=== PATIENT | female | born 1930 | race Caucasian/White ===

== ENCOUNTER 2016-07-08 14:01 | Inpatient (IN) | payer MEDICARE, BC ==
[~2016-07-08] VITALS: Ht 157.5 cm; Wt 70.4 kg
[~2016-07-08 14:01] MED LIST: CALCIUM600 MG PO; FOSAMAX70 MG PO; LOMOTIL-DPS1 TAB PO; LOPRESSOR DPS50 MG PO; LOTENSIN HCT 201 TAB PO; MAALOX DPS30 ML PO; NORVASC5 MG PO; PEPCID DPS20 MG PO; SURFAK DPS240 MG PO; THERAPEUTIC MUL1 TAB PO; TYLENOL DPS325 MG PO; ULTRAM DPS50 MG PO; VITAMIN D-32000 UNI1 PO; VOTRIENT200 MG PO; ZOCOR DPS20 MG PO
--- NOTE | 2016-07-11 08:57 | CO ---
ADMIT: 07/08/2016 RM/LOC: [address] [facility] MR#: [id number] ACC#: [id number] [address] [address] MARIYA KENDRICK Greg [address] [place] [address] Consultation SEX: F AGE: 86 : 1930 DATE OF CONSULTATION: 07/08/2016 ATTENDING PHYSICIAN: Sekou Diaz CONSULTING PHYSICIAN: Wisam Knight MD PROBLEM: Gross hematuria. HISTORY OF PRESENT ILLNESS: This 86-year-old female was seen in the office approximately 1 year ago for a right renal mass. At that time, this was consistent with renal cell carcinoma and she was referred to Dr. Sekou Vaz for radiofrequency ablation which was performed without incident. In April of this year, she did have a repeat renal CT demonstrating the mass to be unchanged in size from that noted previously. She had fallen at that time and was noted to have a retroperitoneal hematoma. She was admitted to the hospital today with gross hematuria. She has had mild dysuria without flank pain, fever, or chills. No nausea or vomiting. There has been no sudden weight loss or bony skeletal pain. PAST MEDICAL HISTORY: MEDICATIONS: 1. Benazepril/hydrochlorothiazide 20/12.5 daily. 2. Metoprolol 50 mg daily. 3. Simvastatin 20 mg daily. 4. Macrodantin 100 mg twice a day which was started yesterday. 5. Amlodipine 5 mg daily. 6. Multiple vitamin daily. 7. Vitamin D3 5000 units daily. 8. Calcium 600 mg daily. ALLERGIES: NONE. PAST SURGICAL HISTORY: Operations as previously stated. Also, coronary artery bypass graft, aortic valve replacement, and bilateral total knee replacement. REVIEW OF SYSTEMS: She does have a history of essential hypertension, hyperlipidemia, osteoporosis. FAMILY HISTORY: Negative for urologic problems. SOCIAL HISTORY: She is a and lives by herself with the support of her family. She does not smoke nor drink. PHYSICAL EXAMINATION: VITAL SIGNS: Temperature is 96.4, respirations 16, pulse 68, blood pressure 118/48. HEENT: Unremarkable. NECK: Supple without adenopathy. ADMIT: 07/08/2016 RM/LOC: 531 [facility] MR#: [id number] [address] [id number] MARIYA KENDRICK [address] [place] [address] Consultation SEX: F AGE: 86 : 1930 ABDOMEN: Soft and without tenderness, guarding, or rigidity, especially in the flank and suprapubic region. No guarding or rigidity was noted. EXTREMITIES: Had full range of motion without deformity. NEUROLOGICAL: She is grossly intact. LABORATORY DATA: Sodium is 143, potassium 4.1, chloride 108, CO2 22, BUN 87, glucose 130, and creatinine was 3.8. CBC showed a white count of 13,100 and hematocrit of 18.6. Voided urinalysis does reveal 3+ occult blood, 3+ leukocytes, 1+ ketone, 2+ protein. A urine culture did reveal, from the , E. coli sensitive to all antibiotics other than Cipro and Levaquin. ASSESSMENT: 1. Escherichia coli urinary tract infection. 2. Acute renal insufficiency. 3. Gross hematuria which may be secondary to her renal cell carcinoma but also may be secondary to her urinary tract infection, although I would venture to say this is more consistent with renal bleed given the amount of blood loss. PLAN: 1. I would repeat her renal CT to evaluate the renal mass given the fact that she has a prior history of retroperitoneal bleed as well. 2. I would insert a Reyez catheter and monitor her urine output closely. 3. I would continue her antibiotic therapy as prescribed by Dr. Diaz. Thank you for allowing us to assist you in the care of Ms. Kendrick and we will follow along with you. R Moisés Knight MD/ nia JOB #: [id number] CC: Sekou Diaz, Attending Physician Sekou Diaz, Family Physician Sekou Diaz MD
[2016-07-21] MEDS ORDERED: SOD BICARB TAB650 MG PO (15:37)
[2016-07-21] MEDS ORDERED: NYSTATIN CREAM15 GM TP (15:37)
--- NOTE | 2016-08-05 09:47 | CO ---
ADMIT: 07/08/2016 RM/LOC: [address] [facility] MR#: [id number] ACC#: [id number] [address] [facility] [address] [place] [id number] MARIYA KENDRICK [address] [place] [address] Consultation SEX: F AGE: 86 : 1930 DATE OF CONSULTATION: 07/08/2016 ATTENDING PHYSICIAN: Sekou Diaz CONSULTING PHYSICIAN: Portia Velázquez MD REASONS FOR CONSULTATION: 1. Acute drop in hemoglobin. 2. Symptomatic anemia. 3. Renal cell carcinoma, on chemotherapy. INTERIM HISTORY: Ms. Kendrick is an 86-year-old, pleasant woman, very well known to me. She has a history of renal cell cancer, unresectable, on pazopanib, she wants to me in the clinic, 2 weeks ago and was fine and we held her treatment and gave her some breakthrough to recover from her chronic condition, because she was recently hospitalized and discharged but initially presented with acute drop in hemoglobin, pale-looking shortness of breath, tired, fatigue, deep brain stimulator, bad condition, her hemoglobin was 5.4; therefore, she was admitted to the hospital for further evaluation. She complains of chronic bloody urine with bleeding from the tumor or bleeding from somewhere else, therefore, she was admitted to the hospital for further management. She will be getting 2 units of blood transfusion and she also will be evaluated by urologist. She is very sick and needs to be taken care of clinically. She and her daughters understand that and she insists, she is getting antibiotics for UTI as well. PAST MEDICAL HISTORY: Renal cell cancer, on pazopanib for treatment, high blood pressure, hypertension, bilateral knee replacement. She was taking aspirin, the patient was advised to stop aspirin now. ALLERGIES: NO KNOWN DRUG ALLERGIES. MEDICATIONS: 1. Pazopanib. 2. Vitamin B12. 3. Simvastatin. 4. Lopressor. 5. Tramadol. SOCIAL HISTORY: Currently, she denies smoking or drinking. She lives at home and has 3 kids. FAMILY HISTORY: History of breast cancer and heart disease in the family. REVIEW OF SYSTEMS: GENERAL: In mild distress due to mild shortness of breath, also history of fatigue and tiredness. Nutrition is adequate. Skin pale. No rashes or infection. No fever. GASTROINTESTINAL: No nausea, no vomiting, no diarrhea. RESPIRATORY: Mild shortness of breath on minimal exertion. ADMIT: 07/08/2016 RM/LOC: 531 [facility] MR#: [id number] [address] [address] MARIYA KENDRICK [address] [place] [address] Consultation SEX: F AGE: 86 : 1930 CARDIOVASCULAR: No chest pain. GENITOURINARY: Bloody urine as per the patient. ENDOCRINOLOGY: No polyuria and no polydipsia. EXTREMITIES: No swelling. PHYSICAL EXAMINATION: VITAL SIGNS: Temperature was 98.1, pulse 75, respirations 16, blood pressure 115/46. HEENT: Normocephalic and atraumatic. LUNGS: Clear. HEART: S1, S2 heard. Regular rate and rhythm. ABDOMEN: Soft, nontender, and nondistended. Positive bowel sounds. EXTREMITIES: No edema. NEUROLOGICAL: Awake, alert, and oriented x3. No neurological deficits. LYMPHATIC: Lateral liver palpated. SKIN: Pale-looking skin. No jaundice. LABORATORY DATA: WBC was 30.1, hemoglobin 5.4, hematocrit 18.6, platelet 369. Her creatinine is 3.4, normal kidneys. IMPRESSION AND RECOMMENDATIONS: Mrs. Kendrick is an 86-year-old pleasant woman with history of renal cell cancer diagnosed, on pazopanib; her pazopanib is on hold for almost a month and half, was admitted due to acute drop in hemoglobin and symptomatic anemia. 1. Acute drop in hemoglobin to 5.4, with symptomatic anemia due to urinary bleeding. The patient needs to be admitted in the hospital, get a couple of units of blood and she also needs urologist workup, probably CAT scan of the kidney or cystoscopy to make sure where she is bleeding from. She may be bleeding from the tumor of the kidney as well. In any of the case, we need to make sure that how we can prevent that bleeding. ADMIT: 07/08/2016 RM/LOC: 531 [facility] MR#: [id number] [address] [address] MARIYA KENDRICK [address] [place] [address] Consultation SEX: F AGE: 86 : 1930 Emily and urologist will be working on that. 2. Renal cell cancer. Stable. PET scan was recently done for the restaging scan and it is there, but is stable. No signs of any other metastatic disease, pazopanib we can hold now and we will respect that later on, once all this condition is figure out. Thank you for your consultation and I will follow the patient with you. I spent total time of 80 minutes and more than 50% of the time was spent in reviewing the medical records, discussing with the patient, and her 3 daughters regarding her conditions and the need of treatment and blood transfusions. Thank you. Portia Velázquez MD/ nia JOB #: [id number] CC: Sekou Diaz, Attending Physician Sekou Diaz, Family Physician
[2016-08-08] MEDS ORDERED: MICRO-K DPS10 MEQ PO (17:45)
[2016-08-08] MEDS ORDERED: MACROBID100 MG PO (17:46)
--- NOTE | 2016-09-28 13:29 | DS ---
ADMIT: 07/08/2016 RM/LOC: 531 [facility] MR#: [id number] [address] [address] MARIYA KENDRICK [address] [place] [address] General Discharge Summary SEX: F AGE: 86 : 1930 ADMISSION DATE: 07/08/2016 DISCHARGE DATE: 07/20/2016 DISMISSAL DIAGNOSES: 1. Complex malignancy, right kidney. 2. Recurrent hematuria and mild clot-related hydronephrosis, right. 3. Advanced age. 4. History of aortic valve replacement. 5. Status post bilateral knee pain. 6. 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 7. Blood-loss anemia, recurrent transfusion. 8. Renal insufficiency secondary to carcinoma of the kidney with partial obstruction of right kidney and ureter. 9. Normal coagulation screen. 10.Escherichia coli urinary tract infection. 11.B-positive blood type. 12.Gelfoam embolization, inferior branch of right renal artery. 13.Suspected mild systolic congestive heart failure. 14.Paroxysmal atrial fibrillation, resolved. 15.History of bradycardia, 2-1 block, resolved. After evaluation and treatment, embolization was undertaken which did reduce initially the bleeding for 48 hours. Subsequent to that time, she began to re- bleed and became transfusion dependent. She essentially gave up and wanted to be a no code and not proceed with further treatment, and we counseled her to consider skilled care and transfusion rather than to go home and have a poorly- controlled situation with catheter plugging due to clotting and pain and discomfort that would follow. After multiple discussions with family regarding hospice and other treatments, we encouraged her to consider skilled care and subsequent therapy for strengthening and catheter management including future removal. We held some small hope that the embolization would ADMIT: 07/08/2016 RM/LOC: 531 [facility] MR#: [id number] [address] [address] MARIYA KENDRICK [address] [place] [address] General Discharge Summary SEX: F AGE: 86 : 1930 have subsequent future improvement and there was a small likelihood that the bleeding would cease and she could consider further chemotherapy and/or treatments. After many katherine discussions with the family, a plan of treatment for skilled care and expectant transfusions was undertaken. She was seen in consultation with Interventional Radiology, Urology, and Oncology. She will follow up with Dr. Pearce upon his return from out of town meeting. Arrangements were made for subsequent followup, etc. Sekou Diaz MD/ nia JOB #: [id number] CC: Sekou Diaz MD, Attending Physician Sekou Diaz MD, Family Physician
== END 2016-07-20 14:12 | DRG 674 ==
LOC: 5MS 14:01
PROVIDERS: ADMIT Specialist
PROC: 04L93DZ Occlusion of Right Renal Artery with Intraluminal Device, Percutaneous Approach (ICD-10-PCS; principal; 2016-07-13)
PROC: 30233N1 Transfusion of Nonautologous Red Blood Cells into Peripheral Vein, Percutaneous Approach (ICD-10-PCS; 2016-07-17)
DX: R31.0 Gross hematuria (principal); C64.1 Malignant neoplasm of right kidney, except renal pelvis; N17.9 Acute kidney failure, unspecified; E87.8 Other disorders of electrolyte and fluid balance, not elsewhere classified; N39.0 Urinary tract infection, site not specified; I11.0 Hypertensive heart disease with heart failure; I50.9 Heart failure, unspecified; D62 Acute posthemorrhagic anemia; B96.20 Unspecified Escherichia coli [E. coli] as the cause of diseases classified elsewhere; E78.5 Hyperlipidemia, unspecified; N28.9 Disorder of kidney and ureter, unspecified; M81.0 Age-related osteoporosis without current pathological fracture; Z95.1 Presence of aortocoronary bypass graft; Z96.653 Presence of artificial knee joint, bilateral; Z95.2 Presence of prosthetic heart valve

== ENCOUNTER 2016-07-20 13:59 | Inpatient (IN) | payer MEDICARE, BC ==
[~2016-07-20] VITALS: Ht 157.5 cm; Wt 63.8 kg
[2016-07-21] MEDS ORDERED: SOD BICARB TAB650 MG PO (15:37)
[2016-07-21] MEDS ORDERED: NYSTATIN CREAM15 GM TP (15:37)
--- NOTE | 2016-07-22 13:01 | NUR ---
INTERVIEW FOR MDS 3.0-PT. IS SITTING IN HER RECLINER, LISTENING TO TV. PT. IS ALERT AND ORIENTED, KNOWS THE YEAR, MONTH AND DAY OF THE WEEK, PT. CAN REPEAT AND RECALL ALL THREE WORDS WITHOUT CUES. PRIOR TO ENTERING HOSPITAL OR ACUTE CARE SHE WAS INDEPENDENT, CARED FOR HERSELF, HELPED HER DTR PREPARE MEALS, DRESSED HERSELF, DID NOT DRIVE. NOW WHILE HERE AT [facility], NEEDS ASSIST OF ONE AND THE USE OF A WALKER FOR AMBULATING AND TRANSFERING, MINIMAL ASSIST WITH DRESSING AND CAN CLEAN HERSELF UP AND ARRANGE HER CLOTHING AFTER TOILETING. PT. DENIES DEPRESSION, STATES HER APPETITE IS PRETTY GOOD, THE FOOD HERE AT [facility] IS BETTER THEN ACUTE CARES SHE STATES. SLEEPS GOOD AT NIGHT. STATES ITS IMPORTANT TO PICK OUT THE CLOTHES THAT SHE WEARS FOR THE DAY, IMPORTANT TO SHOWER, IMPORTANT TO CHOOSE HER BEDTIME, IMPORTANT TO LOCK UP HER BELONGINGS, IMPORTANT TO HAVE FAMILY HERE FOR ANY MEDICAL DECISIONS. DOES NOT USE THE PHONE HERE, HAS A SPECIAL PHONE AT HOME DUE TO HER HEARING AIDS. ITS NOT ALL THAT IMPORTANT TO HAVE SNACKS BETWEEN MEALS. LOVES TO READ, READS THE NEWSPAPER EVERYDAY, KEEPS UP WITH THE NEWS. DOES NOT LISTEN TO MUSIC, HAS A COCKER SPANIAL AT HOME AND SHE IS 10 YEARS OLD, HER NAME IS HELLEN. LIKES TO BE OUTSIDE FOR FRESH AIR, ACTIVE IN THE [place], PREFERS TO BE ALONE THEN IN GROUPS. WHEN ASKING ABOUT GOING HOME, SHE STATES I HOPE SO, BUT STATES TALKED TO HER AND SHE KNOWS SHE IS DYING, BUT HOPES TO BE ABLE TO GO HOME ONCE SHE IS STRONGER. DENIES ANY PAIN. 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
--- NOTE | 2016-08-07 10:42 | NUR ---
MDS 3.0-OBSERVATION AND SHORT DISCHARGE INTERVIEW. PT. DISCHARGING TODAY AND SHE STATES SHE HAS BEEN GONE AWAY FROM HOME X 1 MONTH, SHE IS GLAD TO BE HOME. STATES SHE IS GETTING AROUND ON HER OWN, DRESSING HERSELF, GOES TO THE BATHROOM WITHOUT ASSISTANCE AND IS ABLE TO DO ALL HER OWN CARES. SITTING IN HER RECLINER NOW, ALERT AND ORIENTED. STATES SHE WAS GLAD TO HAVE STAYED HERE AND LIKED BEING HERE. WISHED HER LUCK AT HOME AND TOLD HER WE WERE GLAD SHE COULD STAY WITH US.
--- NOTE | 2016-08-07 11:42 | NUR ---
PATIENT NOTE MARIYA WILL BE D/C TO DAY FOLLOWING AN 18 DAY STAY HERE AT [facility] FOR SHORT TERM REHAB. MARIYA AND HER DTR. MARISOL LIVE TOGETHER, BUT MARISOL DOES WORK ALL DAY. WITH FAMILY PRESENT I VISITED WITH THEM ABOUT [employer] AND HHC. MARIYA HAS HAD [facility] AND WOULD LIKE TO HAVE THEM AGAIN AND SHE DECLINED [facility] [employer]EL[employer]. MARIYA DOES HAVE A LIFELINE ALREADY ALONG WITH WALKER. D/C ORDERS HAVE BEEN FAXED TO [facility] AT HOME AND BHARAT WITH [facility] ALSO AWARE OF HER D/C. MARYIA CAME TO [facility] FOR REHAB. HER AND HER FAMILY AGREE THAT SHE IS STRONGER AND READY TO D/C HOME. SHE REMAINED MEDICARE SKILLED FOR HER STAY WITH PHYSICAL AND OCCUPATIONAL THERAPY THE [facility]. SHE REMAINS ALERT AND ORIENTED. HER DTR. MARISOL WILL BE HERE TODAY AT 1:30 TO TRANSPORT HER HOME. I WISHED HER WELL.
[2016-08-08] MEDS ORDERED: MICRO-K DPS10 MEQ PO (17:45)
[2016-08-08] MEDS ORDERED: MACROBID100 MG PO (17:46)
== END 2016-08-07 13:45 | disposition home health service (06) | DRG 687 ==
LOC: SNU 13:59
PROVIDERS: ADMIT Internal Medicine
DX: C64.9 Malignant neoplasm of unspecified kidney, except renal pelvis (principal); D62 Acute posthemorrhagic anemia; E87.8 Other disorders of electrolyte and fluid balance, not elsewhere classified; N13.30 Unspecified hydronephrosis; I11.0 Hypertensive heart disease with heart failure; I50.22 Chronic systolic (congestive) heart failure; N39.0 Urinary tract infection, site not specified; I48.0 Paroxysmal atrial fibrillation; R31.9 Hematuria, unspecified; M81.0 Age-related osteoporosis without current pathological fracture; E78.5 Hyperlipidemia, unspecified; Z66 Do not resuscitate; Z95.1 Presence of aortocoronary bypass graft; Z95.2 Presence of prosthetic heart valve; Z96.653 Presence of artificial knee joint, bilateral